=== PATIENT | female | born 1975 | race Caucasian/White ===

== ENCOUNTER 2020-10-30 19:18 | Inpatient (IN) | payer MEDICAID, OTHER, SELFPAY ==
--- OUTSIDE RECORDS SUMMARY | 2020-10-30 19:20 | XMS REPORT | Continuity of Care Document ---
:1975 Author Organization [facility] t Address [address] [place] [address] Care Team Providers Name Role Phone Singer JONES Attending Clinician Mary Gomez MD Attending Clinician Problems This patient has no known problems. Allergies, Adverse Reactions, Alerts This patient has no known allergies or adverse reactions. Medications This patient has no known medications. Procedures This patient has no known procedures. Encounters Start End Encounter Admission Attending Care Care Encounter Source Date/Time Date/Time Type Type Clinicians Facility Department ID 2020-10-25 2020-10-26 Emergency [place], [place] [facility] [id number] 17:55:00 01:08:00 Karon Gomez [id number] [place] [id number] [place] [id number] Results This patient has no known results.
[2020-10-31 00:11] LABS: Absolute Lymphocytes (CBC) 4.6 K/uL (0.7-4.9); Basophils % 0.7 % (0-1.3); Hematocrit 31.5 % (36.0-45.0); Lymphocytes % 36.4 % (15.3-44.8); MPV 8.7 fL (7.6-11.3); RBC Red Blood Cell Count 3.79 M/uL (3.86-4.86)
[2020-10-31] MEDS ORDERED: MORPHINE 4 MG/ML SYR ONE (00:14)
[2020-10-31] MEDS ORDERED: ONDANSETRON 4 MG/2 ML VIAL ONE (00:14)
[2020-10-31] MEDS ORDERED: NA CHLORIDE 0.9% 1,000 ML ONE (00:14)
[2020-10-31 00:15] LABS: Protime INR 1.08
[2020-10-31] MEDS ORDERED: CLINDAMYCIN 900MG/D5W 900 MG/50 ML IVPB IV ONE (00:15)
[2020-10-31 01:20] LABS: ALT/SGPT 10 U/L (12-78); AST/SGOT 8 U/L (15-37); Albumin 2.5 g/dL (3.4-5.0); Alkaline Phosphatase ND U/L (45-117); BUN Blood Urea Nitrogen 7 mg/dL (7-18); Bicarbonate 27 mmol/L (21-32); Bilirubin Direct < 0.1 mg/dL (0-0.2); Bilirubin Total 0.2 mg/dL (0.2-1.0); Glucose Level 100 mg/dL (74-106); Lipase 155 U/L (73-393); Magnesium 2.2 mg/dL (1.8-2.4); NT PRO-BNP 165 pg/mL (<125); Protein, Total 7.8 g/dL (6.4-8.2); Sodium Level 141 mmol/L (136-145); Troponin (Emerg Dept Use Only) < 0.02 ng/mL (0.0-0.045)
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
[2020-10-31] MEDS ORDERED: NA CHLORIDE 0.9% 250 ML ONE (02:43)
[2020-10-31] MEDS ORDERED: NS KCL 20MEQ 1,000 ML IV ONE (02:43)
[2020-10-31] MEDS ORDERED: VANCOMYCIN 1 GM/VIAL ONE (02:43)
[2020-10-31] MEDS ORDERED: POTASSIUM 25 MEQ EFFERV TAB ONE (02:43)
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
[2020-10-31] MEDS ORDERED: MORPHINE 2 MG/ML SYR ONE ×2 (03:31→05:51)
[2020-10-31] MEDS ORDERED: ONDANSETRON 4 MG/2 ML VIAL IV PRN (03:54)
[2020-10-31 03:58] VITALS: BMI 23.8
[2020-10-31] MEDS: D5.45NS W/KCL 20MEQ 1,000 ML IV SCH ×2 (05:02→14:00)
[2020-10-31] MEDS ORDERED: D5.45NS W/KCL 20MEQ 1,000 ML IV ONE (05:18)
[2020-10-31] MEDS: MORPHINE 2 MG/ML SYR IV PRN ×2 (05:39→16:52)
[2020-10-31] MEDS ORDERED: NA CHLORIDE 0.9% 100 ML ONE (08:22)
[2020-10-31] MEDS ORDERED: HYDROMORPHONE HCL 1 MG/ML INJ ONE (08:22)
[2020-10-31] MEDS ORDERED: HYDROMORPHONE HCL 1 MG/ML INJ IV ONE (08:29)
--- NOTE | 2020-10-31 08:48 | RAD REPORT ---
EXAM DESCRIPTION: RAD - Chest Single View - 10/30/2020 11:58 pm CLINICAL HISTORY: ABDOMINAL DISTENTION Chest pain. COMPARISON: No comparisons FINDINGS: Portable technique limits examination quality. The lungs are grossly clear. The heart is normal in size. No displaced fractures. IMPRESSION: No acute intrathoracic process suspected.
[2020-10-31] MEDS ORDERED: INFLUENZA VACCINE (for 3y+) 0.5 ML DOSE IMVAC ONE (09:00)
[2020-10-31] MEDS: CLINDAMYCIN INJ 600 MG in NA CHLORIDE 0.9% 50 ML IV SCH ×2 (09:00→17:00)
[2020-10-31] MEDS ORDERED: VANCOMYCIN/NS 1 gm 1 GM/250 ML BAG IVPB SCH (09:00)
[2020-10-31] MEDS ORDERED: CLINDAMYCIN 600MG/D5W 600 MG/50 ML BAG IV ONE (09:24)
--- NOTE | 2020-10-31 10:01 | RAD REPORT ---
EXAM DESCRIPTION: CT ABDOMEN AND PELVIS WITH CONTRAST CLINICAL HISTORY: ABD PAIN COMPARISON: None Available. TECHNIQUE: CT of the abdomen and pelvis performed following IV administration of . This exam was per formed according to our departmental dose-optimization program, which includes automated exposure con trol, adjustment of the mA and/or kV according to patient size and/or use of iterative reconstruction technique. FINDINGS: Lung Bases: The visualized lung bases are clear. Bones: No destructive bone lesions identified. Abdomen: Liver: The liver has normal size and density. No intrahepatic biliary dilatation. Gallbladder: No calcified gallstones. Spleen, Pancreas, and Adrenal Glands: The spleen, pancreas, and adrenal glands are unremarkable. Kidneys: No hydronephrosis or obstructing calculus. Vasculature: The aorta and IVC have normal caliber and position. The portal vein is patent. The pro ximal visceral and renal arteries are patent. Stomach: Gastrostomy tube in place. Other: No free intraperitoneal air. Large partially peripherally enhancing fluid collection in th e left lower abdominal wall subcutaneous soft tissues measuring 15.0 x 5.1 x 11.2 cm . Tiny fat-conta ining umbilical hernia. Pelvis: Bladder: Urinary bladder is unremarkable. Bowel: No dilated loops of large or small bowel. Appendix: Normal appendix. Pelvis: Prior hysterectomy. IMPRESSION: 1. There is a large partially peripherally enhancing fluid collection in the left lower abdominal wall subcutaneous soft tissues measuring at least 15.0 cm in greatest dimension. This is co ncerning for abscess formation. Electronically signed by: Jeremy Doty 10/31/2020 2:03 AM CDT Due to temporary technical issues with the PACS/Fluency reporting system, reports are being signed by the in house radiologist without review as a courtesy to ensure prompt reporting. The interpreting r adiologist is fully responsible for the content of the report.
[2020-10-31] MEDS ORDERED: Ringers Lactate 1,000 ML IV ONE (10:02)
[2020-10-31 10:32] LABS: Urine Blood TRACE (NEG); Urine Glucose NEGATIVE (NEG); Urine Protein NEGATIVE (NEG)
[2020-10-31] MEDS ORDERED: dexAMETHasone 10 MG/ML VIAL ONE (10:53)
[2020-10-31] MEDS ORDERED: MIDAZOLAM HCL 2 MG/2 ML INJ ONE (10:53)
[2020-10-31] MEDS ORDERED: LIDOCAINE 2% MPF 5 ML VIAL ONE (10:53)
[2020-10-31] MEDS ORDERED: FENTANYL CITR 100 MCG/2 ML ONE (10:53)
[2020-10-31] MEDS ORDERED: propofoL 200 MG/20 ML VIAL IV ONE (10:53)
[2020-10-31] MEDS ORDERED: KETOROLAC 30 MG/ML INJ ONE (10:53)
[2020-10-31] MEDS ORDERED: BUPIVACAINE 0.5% PF 10 ML VIAL ONE (10:56)
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
--- NOTE | 2020-10-31 11:37 | P.OP ---
Electrical Tester Battery: NONE,NONE Preoperative diagnosis: Abscess and Cellulitis Left abdominal wall and S/P PEG Postoperative diagnosis: same Primary procedure: I and D and Debridement Left Abdominal Wall Abscess with Pulse Irrigation Secondary procedure: Removal PEG Anesthesia: General Estimated blood loss: min Specimen: pus and PEG tube Findings: as above Complications: None Transferred to: Recovery Room Condition: Good
--- NOTE | 2020-10-31 12:00 | OP ---
Date of Procedure: 10/31/2020 Surgeon: Albert Herrera MD Sole Layer Hand: None. Preoperative Diagnosis: Abdominal wall abscess left abdomen and status post PEG tube placement. Postoperative Diagnosis: Abdominal wall abscess left abdomen and status post PEG tube placement. Procedure: Incision, drainage and debridement of left abdominal wall abscess with pulse irrigation a nd removal of PEG tube. Estimated Blood Loss: Minimal. Specimen: Pus and PEG tube for identification. Finding: As above. Anesthesia: General. Complications: None. Disposition: The patient tolerated the procedure in stable condition and taken to Recovery in good g eneral condition. Procedure In Detail: The patient was brought to the OR and placed in supine position. General anest hesia begun. The patient was prepped and draped in usual sterile fashion. Marcaine 0.5% was infiltr ated locally. Then, 15 blade was used to make approximately a 4 cm incision over the most fluctuant part of the abscess in the left lower abdomen. The 2 areas of fluctuance were connected on the CAT s can and this was evident. Pus under pressure was evacuated and the fluctuance disappeared in the low er groin area. All the pus was evacuated. Cultures were done. Loculation was broken. Wound was ir rigated. The necrotic tissue was debrided. Pulse irrigation was done. Effluent was clear and a wet -to-dry normal saline dressing change was applied and then the gentle traction was placed on the PEG tube and it was removed easily, and 2-0 nylon was used to close the open wound. Sterile dressing was applied. The patient was awakened and taken to Recovery in good general condition. /MODL Voice ID: [id number] Report ID: [id number]
[2020-10-31] MEDS: VANCOMYCIN/NS 1 gm 1 GM/250 ML BAG IVPB SCH (15:00)
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
[2020-10-31] MEDS: HYDROCODONE/APAP 7.5/325 MG TAB PO PRN (19:59)
[2020-11-01] MEDS: CLINDAMYCIN INJ 600 MG in NA CHLORIDE 0.9% 50 ML IV SCH ×3 (00:12→17:00)
[2020-11-01] MEDS: D5.45NS W/KCL 20MEQ 1,000 ML IV SCH ×2 (00:46→10:00)
[2020-11-01] MEDS: VANCOMYCIN/NS 1 gm 1 GM/250 ML BAG IVPB SCH ×2 (02:07→17:54)
[2020-11-01 05:56] LABS: Absolute Lymphocytes (CBC) 3.7 K/uL (0.7-4.9); Basophils % 1.1 % (0-1.3); Hematocrit 25.1 % (36.0-45.0); MPV 8.9 fL (7.6-11.3); RBC Red Blood Cell Count 3.02 M/uL (3.86-4.86)
[2020-11-01 06:31] LABS: ALT/SGPT 9 U/L (12-78); AST/SGOT 8 U/L (15-37); BUN Blood Urea Nitrogen 6 mg/dL (7-18); Bicarbonate 26 mmol/L (21-32); Bilirubin Total 0.3 mg/dL (0.2-1.0); Glucose Level 100 mg/dL (74-106); Potassium 3.8 mmol/L (3.5-5.1); Protein, Total 5.9 g/dL (6.4-8.2); Sodium Level 143 mmol/L (136-145); Thyroid Stimulating Hormone 0.294 uIU/mL (0.360-3.740)
[2020-11-01 06:35] LABS: Alkaline Phosphatase ND U/L (45-117)
[2020-11-01] MEDS: HYDROCODONE/APAP 7.5/325 MG TAB PO PRN ×2 (07:58→21:43)
[2020-11-01] MEDS ORDERED: POTASSIUM CL SA 10 MEQ TAB PO ONE (09:00)
[2020-11-01] MEDS: MORPHINE 2 MG/ML SYR IV PRN (13:52)
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
[2020-11-01] MEDS ORDERED: TRAMADOL HCL 50 MG TAB PO PRN (14:12)
[2020-11-01 16:26] LABS: Hematocrit 29.4 % (36.0-45.0)
--- NOTE | 2020-11-01 16:49 | PN ---
Date of Progress Note: 11/01/2020 Subjective: The patient is awake, alert. No complaint. Vitals stable, afebrile. Laboratory data s hows slight decrease in the white count. Cultures are pending. Gram stain shows probable staph orga nism. Dressing is clean, dry and intact on physical exam. Assessment: Status post I and D, abdominal wall abscess. Recommendations: Continue IV antibiotics. Check cultures. Adjust oral antibiotics based on the cul tures. Wound care as ordered, teach family. Probable discharge in 24 to 48 hours. Discharge zeinab HAYS/MODL Voice ID: [id number] Report ID: [id number]
[2020-11-01] MEDS ORDERED: NA CHLORIDE 0.9% 250 ML ONE (18:18)
[2020-11-02] MEDS: CLINDAMYCIN INJ 600 MG in NA CHLORIDE 0.9% 50 ML IV SCH ×2 (00:14→09:15)
[2020-11-02] MEDS: VANCOMYCIN/NS 1 gm 1 GM/250 ML BAG IVPB SCH (02:07)
[2020-11-02 06:59] LABS: Hematocrit 26.6 % (36.0-45.0); Lymphocytes % 46.6 % (15.3-44.8); MPV 8.9 fL (7.6-11.3); RBC Red Blood Cell Count 3.21 M/uL (3.86-4.86)
[2020-11-02 07:09] LABS: ALT/SGPT 10 U/L (12-78); AST/SGOT 7 U/L (15-37); Albumin 2.1 g/dL (3.4-5.0); Alkaline Phosphatase 90 U/L (45-117); BUN Blood Urea Nitrogen 7 mg/dL (7-18); Bicarbonate 27 mmol/L (21-32); Bilirubin Total 0.2 mg/dL (0.2-1.0); Glucose Level 83 mg/dL (74-106); Potassium 3.9 mmol/L (3.5-5.1); Sodium Level 145 mmol/L (136-145)
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
[2020-11-02 09:06] VITALS: BP 113/79; TEMP 97.7
[2020-11-02 09:29] VITALS: O2SAT 99
--- NOTE | 2020-11-02 10:12 | PN ---
Date of Progress Note: 11/02/2020 Subjective: The patient is awake and alert. No complaint. Physical Examination: Vital Signs: Stable. Afebrile. Abdomen: Benign. Dressing clean, dry, and intact. Laboratory Data: Cultures reviewed, Staph aureus sensitive to Bactrim, doxycycline, Cipro. White co unt is normal. Assessment: Status post incision and drainage and debridement of abdominal wall abscess. Recommendations: Clear for discharge from surgical standpoint on Bactrim and doxycycline. Follow up in the wound healing center in a week. Wound care as ordered. Plan of care discussed with Dr. Smallwood as. /MODL Voice ID: [id number] Report ID: [id number]
== END 2020-11-02 10:27 | disposition home or self-care (01) | DRG 572 ==
LOC: ER 19:18 → ERHOLD 10-31 03:30 → 2ND 10-31 12:49
PROVIDERS: ADMIT Family Medicine; ATTEND Family Medicine
PROC: 0DP60UZ Removal of Feeding Device from Stomach, Open Approach (ICD-10-PCS; 2020-10-31)
PROC: 0JB80ZZ Excision of Abdomen Subcutaneous Tissue and Fascia, Open Approach (ICD-10-PCS; principal; 2020-10-31 10:15)
DX: L02.211 Cutaneous abscess of abdominal wall (principal); L03.311 Cellulitis of abdominal wall; F17.210 Nicotine dependence, cigarettes, uncomplicated; D50.9 Iron deficiency anemia, unspecified; F41.9 Anxiety disorder, unspecified; B95.61 Methicillin susceptible Staphylococcus aureus infection as the cause of diseases classified elsewhere; Z93.1 Gastrostomy status; Z79.899 Other long term (current) drug therapy; Z93.0 Tracheostomy status; Z20.822 Contact with and (suspected) exposure to COVID-19
CPT/HCPCS: 36415; 71045; 74177; 80048; 80053; 80076; 80202; 81003; 81025; 83690; 83735; 83880; 84439; 84443; 84484; 85014; 85018; 85025; 85610; 87070; 87075; 87077; 87186; 87205; 88300; 96365; 96366; 96367; 96375; 99285; J1100; J1170; J2250; J2270; J2405; J2704; J3010; J3370; J3480; J7050; J7120; Q9967; U0003

== ENCOUNTER 2021-12-07 14:41 | Emergency (ER) | payer OTHER ==
--- OUTSIDE RECORDS SUMMARY | 2021-12-07 14:45 | XMS REPORT | Continuity of Care Document ---
:1975 Author Organization [facility] t Address [address] [place] [address] Care Team Providers Name Role Phone PELON WING Primary Care Physician Unavailable CA Attending Clinician Unavailable ROSALIE Attending Clinician Unavailable Ca LE Attending Clinician Doctor Unassigned, Name Attending Clinician Unavailable Pelon Wing MD Attending Clinician Carlos CHEN S Attending Clinician Raciel Levi Attending Clinician Unavailable Singer JONES Attending Clinician Patricia LE S Attending Clinician SHERRI Attending Clinician Unavailable MARTHA Attending Clinician Unavailable LUL Attending Clinician Unavailable CA Admitting Clinician Unavailable Rey Hernandez Admitting Clinician Unavailable Payers Payer Name Policy Type Policy Number Effective Date Expiration Date S [facility] [id number] 2021 00:00:00 [place] [id number] 2021 00:00:00 Problems Condition Condition Condition Status Onset Resolution Last Treating Co mments Source Name Details Category Date Date Treatment Clinician Date Displaced Displaced Disease Active Overview: Univers fracture fracture 4-11 Formattin ity of of neck of of neck of 00:00: g of this [place] right right 00 note Medical talus, talus, might be Branch initial initial different encounter encounter from the for closed for closed original. fracture fracture Added automatic ally from request for surgery [id number] Osteonecro Osteonecro Disease Active Overview : Univers sis due to sis due to 4- Formattin ity of previous previous 00:00: g of this [place] as trauma, trauma, 00 note Medical right right might be Branch ankle ankle different from the original. Added automatic ally from request for surgery [id number] Fracture, Fracture, Disease Active Uni vers fibula, fibula, 4-04 ity of with with 00:00: [place] tibia, tibia, 00 Medical left, left, Branch closed, closed, with with nonunion, nonunion, subsequent subsequent encounter encounter Traumatic Traumatic Disease Active Uni vers arthritis arthritis 04 ity of of ankle, [place], [place] Smoker Smoker Disease Active Univers 4-04 ity of 00:00: [place] 00 Medical Branch Pseudoseiz Pseudoseiz Disease Active U nivers ure ure 1-12 ity of 00:00: [place] 00 Medical Branch Epilepsy Epilepsy Problem Active Unive rs ity of [place] Physici ans Allergies, Adverse Reactions, Alerts Allergy Allergy Status Severity Reaction(s) Onset Inactive Treating Comm ents Source Name Type Date Date Clinician codeine DA Active U UNKNOWN [facility] 7-16 [place] 00:00: Health [address] aspirin DA Active U UNKNOWN [facility] 7-16 [place] 00:00: Health [address] ibuprofe DA Active U UNKNOWN [facility] n 7-16 [place] 00:00: Health [address] codeine DA Active U [facility] 7-16 [place] 00:00: Health [address] aspirin DA Active U [facility] 7-16 [place] 00:00: Health [address]uprofe DA Active U [facility] n 7-16 [place] 00:00: Health [address] NO KNOWN Drug Active Univers ALLERGIE Class ity of S [facility] Social History Social Habit Start Date Stop Date Quantity Comments Source History of tobacco Cigarette Smoker University of use [place] [facility] History SDOH University o f Alcohol Std Drinks [place] [facility] History SDOH University o f Alcohol Binge [place] [facility] al Branch History SDOH University o f Alcohol Comment [place] Med ical Branch Exposure to 2021-11-27 2021-12-07 Unable to assess Univers ity of SARS-CoV-2 (event) 00:00:00 12:14:00 [facility] Alcohol intake 2021-11-17 2021-11-17 Lifetime University of 00:00:00 00:00:00 non-drinker [facility] (finding) Branch Cigarettes smoked 2021-04-09 2021-04-09 Univers ity of current (pack per 00:00:00 00:00:00 [facility] ) - Reported Branch Tobacco use and 2021-04-09 2021-04-09 Never used Universit y of exposure 00:00:00 00:00:00 [facility] History SDOH 2021-04-09 2021-04-09 1 University o f Alcohol Frequency 00:00:00 00:00:00 [facility] Sex Assigned At [birth year] Universit y of 00:00:00 00:00:00 [facility] Smoking Status Start Date Stop Date Source Current every day smoker 2021-04-09 00:00:00 Uni versity of [facility] Medications Ordered Filled Start Stop Current Ordering Indication Dosage Frequency Signature Comments Components Source Medication Medication Date Date Medication? Clinician (SIG) Name Name naproxen Yes 220mg Take 220 Univ ers sodium 3-29 mg by ity of (ALEVE) 220 12:30: mouth 2 [place] mg tablet 01 (two) Medical times Branch daily with meals. naproxen Yes 220mg Take 220 Univ ers sodium 3-29 mg by ity of (ALEVE) 220 12:30: mouth 2 [place] mg tablet 01 (two) Medical times Branch daily with meals. naproxen 0 Yes 220mg Take 220 Univ ers sodium 3-29 mg by ity of (ALEVE) 220 12:30: mouth 2 [place] mg tablet 01 (two) Medical times Branch daily with meals. naproxen 0 Yes 220mg Take 220 Univ ers sodium 3-29 mg by ity of (ALEVE) 220 12:30: mouth 2 [place] as mg tablet 01 (two) Medical times Branch daily with meals. naproxen 0 Yes 220mg Take 220 Univ ers sodium 3-29 mg by ity of (ALEVE) 220 12:30: mouth 2 [place] mg tablet 01 (two) Medical times Branch daily with meals. naproxen 2021-0 Yes 220mg Take 220 Univ ers sodium 3-29 mg by ity of (ALEVE) 220 12:30: mouth 2 [place] mg tablet 01 (two) Medical times Branch daily with meals. naproxen 2021-0 Yes 220mg Take 220 Univ ers sodium 3-29 mg by ity of (ALEVE) 220 12:30: mouth 2 [place] mg tablet 01 (two) Medical times Branch daily with meals. naproxen 2021-0 Yes 220mg Take 220 Univ ers sodium 3-29 mg by ity of (ALEVE) 220 12:30: mouth 2 [place] mg tablet 01 (two) Medical times Branch daily with meals. naproxen 2021-0 Yes 220mg Take 220 Univ ers sodium 3-29 mg by ity of (ALEVE) 220 12:30: mouth 2 [place] mg tablet 01 (two) Medical times Branch daily with meals. escitalopra Yes [id number] 20mg Take 1 Univers m oxalate 3-25 tablet by ity o f 20 mg 00:00: mouth [place] tablet 00 daily. Medical Branch escitalopra Yes [id number] 20mg Take 1 Univers m oxalate 3-25 tablet by ity o f 20 mg 00:00: mouth [place] tablet 00 daily. Medical Branch escitalopra Yes [id number] 20mg Take 1 Univers m oxalate 3-25 tablet by ity o f 20 mg 00:00: mouth [place] tablet 00 daily. Medical Branch escitalopra Yes [id number] 20mg Take 1 Univers m oxalate 3-25 tablet by ity o f 20 mg 00:00: mouth [place] tablet 00 daily. Medical Branch escitalopra Yes [id number] 20mg Take 1 Univers m oxalate 3-25 tablet by ity o f 20 mg 00:00: mouth [place] tablet 00 daily. Medical Branch escitalopra Yes [id number] 20mg Take 1 Univers m oxalate 3-25 tablet by ity o f 20 mg 00:00: mouth [place] tablet 00 daily. [facility] Branch escitalopra Yes [id number] 20mg Take 1 Univers m oxalate 3-25 tablet by ity o f 20 mg 00:00: mouth [place] tablet 00 daily. Medical Branch escitalopra 2021-0 Yes [id number] 20mg Take 1 Univers m oxalate 3-25 tablet by ity o f 20 mg 00:00: mouth [place] tablet 00 daily. Medical Branch escitalopra 2021-0 Yes [id number] 20mg Take 1 Univers m oxalate 3-25 tablet by ity o f 20 mg 00:00: mouth [place] tablet 00 daily. Medical Branch GABAPENTIN 2021-0 Yes [id number] TAKE 1 Univers 300 mg 2-14 CAPSULE BY ity of capsule 00:00: MOUTH [place] 00 THREE Medical TIMES A Branch DAY GABAPENTIN 2-0 Yes [id number] TAKE 1 Univers 300 mg 2-14 CAPSULE BY ity of capsule 00:00: MOUTH [place] 00 THREE Medical TIMES A Branch DAY GABAPENTIN 2022-0 Yes [id number] TAKE 1 Univers 300 mg 2-14 CAPSULE BY ity of capsule 00:00: MOUTH [place] 00 THREE Medical TIMES A Branch DAY GABAPENTIN 2-0 Yes [id number] TAKE 1 Univers 300 mg 2-14 CAPSULE BY ity of capsule 00:00: MOUTH [place] 00 THREE Medical TIMES A Branch DAY GABAPENTIN 2-0 Yes [id number] TAKE 1 Univers 300 mg 2-14 CAPSULE BY ity of capsule 00:00: MOUTH [place] 00 THREE Medical TIMES A Branch DAY GABAPENTIN 2022-0 Yes [id number] TAKE 1 Univers 300 mg 2-14 CAPSULE BY ity of capsule 00:00: MOUTH [place] 00 THREE Medical TIMES A Branch DAY GABAPENTIN 2022-0 Yes [id number] TAKE 1 Univers 300 mg 2-14 CAPSULE BY ity of capsule 00:00: MOUTH [place] 00 THREE Medical TIMES A Branch DAY GABAPENTIN 2022-0 Yes [id number] TAKE 1 Univers 300 mg 2-14 CAPSULE BY ity of capsule 00:00: MOUTH [place] 00 THREE Medical TIMES A Branch DAY GABAPENTIN 2-0 Yes [id number] TAKE 1 Univers 300 mg 2-14 CAPSULE BY ity of capsule 00:00: MOUTH [place] 00 THREE Medical TIMES A Branch DAY neomycin-po 2021-0 Yes PUT1 DROP U nivers lymyxin-dex 2-07 IN EACH ity o f amethasone 00:00: EYE 4 [place] 3.5mg/mL-10 00 TIMES A Medic al ,000 DAY FOR 7 Branch unit/mL-0.1 DAYS % (START ophthalmic AFTER suspension SURGERY) drops neomycin-po 2022-0 Yes PUT1 DROP U nivers lymyxin-dex 2-07 IN EACH ity o f amethasone 00:00: EYE 4 [place] 3.5mg/mL-10 00 TIMES A Medic al ,000 DAY FOR 7 Branch unit/mL-0.1 DAYS % (START ophthalmic AFTER suspension SURGERY) drops neomycin-po 2022-0 Yes PUT1 DROP U nivers lymyxin-dex 2-07 IN EACH ity o f amethasone 00:00: EYE 4 [place] 3.5mg/mL-10 00 TIMES A Medic al ,000 DAY FOR 7 Branch unit/mL-0.1 DAYS % (START ophthalmic AFTER suspension SURGERY) drops neomycin-po 2022-0 Yes PUT1 DROP U nivers lymyxin-dex 2-07 IN EACH ity o f amethasone 00:00: EYE 4 [place] 3.5mg/mL-10 00 TIMES A Medic al ,000 DAY FOR 7 Branch unit/mL-0.1 DAYS % (START ophthalmic AFTER suspension SURGERY) drops neomycin-po 2022-0 Yes PUT1 DROP U nivers lymyxin-dex 2-07 IN EACH ity o f amethasone 00:00: EYE 4 [place] 3.5mg/mL-10 00 TIMES A Medic al ,000 DAY FOR 7 Branch unit/mL-0.1 DAYS % (START ophthalmic AFTER suspension SURGERY) drops neomycin-po 2022-0 Yes PUT1 DROP U nivers lymyxin-dex 2-07 IN EACH ity o f amethasone 00:00: EYE 4 [place] 3.5mg/mL-10 00 TIMES A Medic al ,000 DAY FOR 7 Branch unit/mL-0.1 DAYS % (START ophthalmic AFTER suspension SURGERY) drops neomycin-po 2022-0 Yes PUT1 DROP U nivers lymyxin-dex 2-07 IN EACH ity o f amethasone 00:00: EYE 4 [place] 3.5mg/mL-10 00 TIMES A Medic al ,000 DAY FOR 7 Branch unit/mL-0.1 DAYS % (START ophthalmic AFTER suspension SURGERY) drops neomycin-po 2022-0 Yes PUT1 DROP U nivers lymyxin-dex 2-07 IN EACH ity o f amethasone 00:00: EYE 4 [place] 3.5mg/mL-10 00 TIMES A Medic al ,000 DAY FOR 7 Branch unit/mL-0.1 DAYS % (START ophthalmic AFTER suspension SURGERY) drops neomycin-po Yes PUT1 DROP U elfegokomal lymyxin-dex 2-07 IN EACH ity o f amethasone 00:00: EYE 4 [place] 3.5mg/mL-10 00 TIMES A Medic al ,000 DAY FOR 7 Branch unit/mL-0.1 DAYS % (START ophthalmic AFTER suspension SURGERY) drops levETIRAcet levETIRAcet Yes TAKE 1 Univers am 1000 MG am 1000 MG TABLET BY ity of Oral Tablet Oral Tablet MOUTH [place] TWICE Physici DAILY ans Wellbutrin Wellbutrin Yes Q12H TAKE 1 U nivers SR 150 MG SR 150 MG TABLET ity of Oral Tablet Oral Tablet EVERY 12 [place] Extended Extended HOURS Physic i Release 12 Release 12 DAILY. a ns Hour Hour Vital Signs Vital Name Observation Time Observation Value Comments Source Body temperature 2021-11-17 14:59:00 36.06 Sarah [facility] height 2021-11-17 14:59:[address] [facility] Body weight 2021-11-17 14:59:[address] [facility] BMI 2021-11-17 14:59:00 37.22 kg/m2 [facility] Procedures Procedure Date / Time Performed Performing Clinician [facility] e NOTICE OF PRIVACY 2021-12-07 17:18:05 [facility]igned, [facility] Name Medical Branch CONSENT/REFUSAL FOR 2021-12-07 17:17:14 Doctor Unassigned, No [facility] DIAGNOSIS AND Name Medical Branch TREATMENT MEDICAL 2021-12-04 05:01:00 Doctor Unassigned, No Univer sity [facility] [place] [facility] RELEASE/CLEARANCE Name Medical Branch FORMS PHYSICIAN ORDERS 2021-11-19 05:01:00 Doctor [facility]assigned, [facility] Name Medical Branch XR ANKLE 3+ VW 2021-11-17 15:35:55 Flakita [facility] BILATERAL Medical Branch XR FOOT 3+ VW 2021-11-17 15:35:12 Flakita [facility] BILATERAL Medical Branch Encounters Start End Encounter Admission Attending Care Care Encounter Source Date/Time Date/Time Type Type Clinicians Facility Department ID 2021-12-05 Outpatient PANCHBHAVI, [facility] SOR [id number] Univers 08:18:10 [place] ity [facility] 2021-01-22 Outpatient ROSALIE [facility] [id number] [place] 16:38:07 TOR [facility] 2021-12-29 2021-12-29 [facility] [id number] Univers 13:30:00 13:30:00 [place] [id number] ity of [facility] 2021-12-29 2021-12-29 Outpatient [facility] [id number] Univers 13:30:00 13:30:00 [place] ity [facility] 2021-12-13 2021-12-13 Outpatient R [facility] [id number] Univers 10:00:00 10:00:00 [id number] ity of [facility] 2021-12-13 2021-12-13 Outpatient R [facility] [id number] Univers 10:00:00 10:00:00 ity of [facility] 2021-12-07 2021-12-07 Emergency X [facility] ERT [id number] Univers 13:19:00 13:20:00 ity of [facility] 2021-12-07 2021-12-07 Emergency [facility] [id number] Univers 13:19:00 13:20:00 [place] [id number] i ty of HOWE 4.2.7.2.686 [facility] [phone] [facility] [address] [place] 2021-12-04 2021-12-[address] [facility] [id number] Univers 00:00:00 00:00:00 Management [place] [facility] [id number] ity of CARE [id number] [facility] [place] [facility] AT [phone] Sd rebeccaal RICKY 198 [facility] 2021-12-04 2021-12-04 Orders Doctor TAYLOR [id number] Univers 00:00:00 00:00:00 Only Unassigned, TEVIN [id number] ity of [place] [facility] 4.2.7.2.686 [place] [phone] [address] 2021-11-19 2021-11-19 Orders Doctor TAYLOR [id number] Univers 00:00:00 00:00:00 Only Unassigned, TEVIN [id number] ity of [place] [facility] 4.2.7.2.686 [place] as [phone] [address] 2021-11-18 2021-11-18 [facility] [id number] Univers 00:00:00 00:00:00 [facility] [id number] it y of [place] 4.2.7.2.686 [place]ie as SAUL?BLEA [phone] Sd rick MICHELLE 044 [facility] OFFICE [facility] 2021-11-18 2021-11-18 Telephone [facility] [id number] Univers 00:00:00 00:00:00 [facility] [id number] it y of [place] 4.2.7.2.686 [place] as SAUL?BLEA [phone] Sd rick MICHELLE 198 [facility] OFFICE [facility] 2021-11-17 2021-11-17 [facility] [id number] Univers 10:12:19 23:59:00 Encounter [place] SPECIALTY [id number] ity of C[place] [id number] [place] [phone] Sd rick GARCÍA 809 [facility] 2021-11-17 2021-11-17 Office [facility] [id number] Univers 10:50:00 10:50:00 Visit [place] SPECIALTY [id number] ity of C[place] [id number] [place] [phone] Sd rick GARCÍA 198 [facility] 2021-11-17 2021-11-17 Outpatient R [facility] [id number] Univers 10:11:59 10:11:59 [place] ity of [facility] 2021-11-17 2021-11-17 [facility] [id number] Univers 10:11:59 10:11:59 Encounter [place] SPECIALTY [id number] [facility] 4.2.7.2.686 Willie mccloud MARINA DEL REY AT [phone] Sd rick GARCÍA 9 [facility] 2021-02-28 2021-02-28 Emergency EM MARC LeviNW NATALI [id number]- [facility] 13:48:00 21:10:00 [place] [id number] [place] [facility] are [facility] 2020-10-25 2020-10-26 Emergency [place] [facility] 1.2.840. [id number] 17:55:00 01:08:00 Karon Gomez [place] [id number] [place] [id number] [place] [phone] [id number] 2020-10-08 2020-10-08 Appointmen LEANNE POLANCO UTP [id number] Univers 08:15:00 08:15:00 t; IKE POLANCO P.A. ity of [place], [place] P.A. Physici ans 2020-09-06 2020-09-06 Appointmen TAYLOR THOMAS UTP UTP [id number] [facility] 10:30:00 10:30:00 t; Karma THOMAS M.D. [place] Physici ans 2020-09-02 2020-09-02 Appointmen LEANNE MCCARTY UTP [id number] Univers 10:00:00 10:00:00 t; MAVERICK MCCARTY ity of [place], M.D. [place] M.D. Physici ans Results Test Description Test Time Test Comments Results Result Comments Source BASIC METABOLIC PANEL 2021-02-28 19:06:00 Test Item Value Reference Range Interpretation Comme nts SODIUM (test code = NA) 137 mmol/L 135-145 N POTASSIUM (test code = K) 3.9 mmol/L 3.6-5.0 N CHLORIDE (test code = CL) 102 mmol/L 101-111 N CARBON DIOXIDE (test code = 20 mmol/L 21-31 L CO2) GLUCOSE (test code = GLU) 101 mg/dl 70-100 H BLOOD UREA NITROGEN (test 7 mg/dl 6-20 N code = BUN) GLOMERULAR FILTRATION RATE >=60 max estimate >60 The estimated glomerular (test code = GFR) filtration rate is computed usingpatient ra ce, age (>18), sex, and serum creatinine. If anyof the needed data shasha ments are missing the Lab oratory cannot compute an estimation of the glomerul ar filtration rate. CREATININE (test code = 0.74 mg/dL 0.44-1.03 N CREAT) CALCIUM (test code = CA) 9.5 mg/dL 8.5-10.5 N CBC W/AUTO [id number] 19:05:00 Test Item Value Reference Range Interpretation Comments WHITE BLOOD CELL (test code = 11.2 x10 3/uL 3.2-11.5 N WBC) RED BLOOD CELL (test code = 5.63 x10(6)/m 3.70-5.10 H RBC) HEMOGLOBIN (test code = HGB) 14.3 g/dL 12.0-15.0 N HEMATOCRIT (test code = HCT) 46.0 % 35.7-44.8 H MEAN CELL VOLUME (test code = 82 fL 80-100 N MCV) MEAN CELL HGB (test code = MCH) 25.4 pg 26.2-33.8 L MEAN CELL HGB CONCENTRATION 31.1 g/dL 30.0-34.0 N (test code = MCHC) RED CELL DISTRIBUTION WIDTH 18.4 % 11.3-14.5 H (test code = RDW) PLATELET COUNT (test code = 520 x10 3/uL 130-408 H PLT) MEAN PLATELET VOLUME (test code 10.5 fL 8.6-12.6 N = MPV) NEUTROPHIL % (test code = NT%) 47.0 % 40.0-70.0 N IMMATURE GRANULOCYTE % (test 0.3 % 0.0-2.0 N code = IG%) LYMPHOCYTE % (test code = LY%) 44.9 % 20-40 H MONOCYTE % (test code = MO%) 5.8 % 1-10 N EOSINOPHIL % (test code = EO%) 1.4 % 0.0-5.0 N BASOPHIL % (test code = BA%) 0.6 % 0.0-1.0 N NUCLEATED RBC % (test code = 0.0 % 0.0-0.9 N NRBC%) NEUTROPHIL # (test code = NT#) 5.3 x10 3/uL 1.6-7.2 N LYMPHOCYTE # (test code = LY#) 5.05 x10 3/uL 1.1-2.7 H MONOCYTE # (test code = MO#) 0.7 x10 3/uL 0.3-0.8 N EOSINOPHIL # (test code = EO#) 0.2 x10 3/uL 0.0-0.5 N BASOPHIL # (test code = BA#) 0.1 x10 3/uL 0.0-0.1 N CBC W/AUTO [id number] 19:03:00 Test Item Value Reference Range Interpretation Comments WHITE BLOOD CELL (test code = 11.2 x10 3/uL 3.2-11.5 N WBC) RED BLOOD CELL (test code = 5.63 x10(6)/m 3.70-5.10 H RBC) HEMOGLOBIN (test code = HGB) 14.3 g/dL 12.0-15.0 N HEMATOCRIT (test code = HCT) 46.0 % 35.7-44.8 H MEAN CELL VOLUME (test code = 82 fL 80-100 N MCV) MEAN CELL HGB (test code = MCH) 25.4 pg 26.2-33.8 L MEAN CELL HGB CONCENTRATION 31.1 g/dL 30.0-34.0 N (test code = MCHC) RED CELL DISTRIBUTION WIDTH % 11.3-14.5 (test code = RDW) PLATELET COUNT (test code = x10 3/uL 130-408 PLT) MEAN PLATELET VOLUME (test code 10.5 fL 8.6-12.6 N = MPV) NEUTROPHIL % (test code = NT%) % 40.0-70.0 LYMPHOCYTE % (test code = LY%) % 20-40 MONOCYTE % (test code = MO%) % 1-10 EOSINOPHIL % (test code = EO%) % 0.0-5.0 BASOPHIL % (test code = BA%) % 0.0-1.0 NUCLEATED RBC % (test code = % 0.0-0.9 NRBC%) NEUTROPHIL # (test code = NT#) x10 3/uL 1.6-7.2 LYMPHOCYTE # (test code = LY#) x10 3/uL 1.1-2.7 MONOCYTE # (test code = MO#) x10 3/uL 0.3-0.8 EOSINOPHIL # (test code = EO#) x10 3/uL 0.0-0.5 HCG SERUM [id number] 19:00:00 Test Item Value Reference Range Interpretation Comments HCG SERUM QUAL NEGATIVE NEGATIVE This is a jose litative (test code = HCGQL) screenin g test.The quantitative Bh cg may be helpful.Weakly positive results should be repeated in 48 hours.
[2021-12-07] MEDS ORDERED: HYDROMORPHONE HCL 1 MG/ML INJ ONE ×2 (15:26→16:00)
[2021-12-07] MEDS ORDERED: ONDANSETRON 4 MG/2 ML VIAL ONE (15:26)
[2021-12-07 15:37] LABS: Absolute Lymphocytes (CBC) 4.1 K/uL (0.7-4.9); Hematocrit 36.7 % (36.0-45.0); Lymphocytes % 27.5 % (15.3-44.8); MPV 8.3 fL (7.6-11.3); RBC Red Blood Cell Count 4.25 M/uL (3.86-4.86)
[2021-12-07 15:51] LABS: AST/SGOT 10 U/L (15-37); Albumin 3.7 g/dL (3.4-5.0); Alkaline Phosphatase 100 U/L (45-117); BUN Blood Urea Nitrogen 15 mg/dL (7-18); Bicarbonate 19 mmol/L (21-32); Bilirubin Total 0.4 mg/dL (0.2-1.0); Glucose Level 109 mg/dL (74-106); Lipase 87 U/L (73-393); Protein, Total 7.9 g/dL (6.4-8.2); Sodium Level 139 mmol/L (136-145)
--- NOTE | 2021-12-07 15:51 | RAD REPORT ---
EXAM DESCRIPTION: RAD - Chest Single View - 12/07/2021 3:39 pm CLINICAL HISTORY: flank pain, abdominal pain COMPARISON: Portable 10/30/2020 TECHNIQUE: AP portable chest image was obtained 12/07/2021 3:39 pm . FINDINGS: Lungs are clear. Heart and vasculature are normal. No measurable pleural effusion and no p neumothorax. No acute bony abnormality seen. No acute aortic findings suspected. IMPRESSION: No acute cardiopulmonary process. No significant change from comparison study.
--- NOTE | 2021-12-07 15:55 | RAD REPORT ---
EXAM DESCRIPTION: CT - Stone Protocol - 12/07/2021 3:36 pm CLINICAL HISTORY: Flank pain, kidney stone suspected COMPARISON: Abdomen Pelvis W Contrast dated 10/31/2020 TECHNIQUE: Axial 3 mm thick images were obtained without oral or IV contrast. The [id number] span s the entirety of the system including uppermost abdomen and lung bases. All CT scans are performed using dose optimization technique as appropriate and may include automated exposure control or mA/KV adjustment according to patient size. FINDINGS: No hydronephrosis is present and no obstructing ureteral calculi. No suspicious renal mass es. Isodense masses and pyelonephritis are not excluded on a stone protocol CT scan. No significant a drenal finding. Urinary bladder is fully contracted limiting assessment. No bladder calculi seen. Kaye phuc and ovaries show no suspicious findings. Imaged portions of the liver, spleen and pancreas show no suspicious findings on non-contrast imaging . No gallbladder or biliary tree abnormality identified. No stomach or small bowel acute findings. Moderate stool volume is present filling but not dilating t he colon. No colon wall thickening or mass. Stool-filled cecum is positioned along the anterior midli ne floor the pelvis. Appendix is not clearly defined. There are no direct or indirect findings of ramo endicitis. No hernia, mass or bulky lymphadenopathy noted. No free air, free fluid or inflammatory stranding. No significant bony abnormality. IMPRESSION: Noncontrast CT abdomen and pelvis imaging shows no acute or suspicious finding. Isodense masses and pyelonephritis are not excluded on stone protocol technique.
[2021-12-07] MEDS ORDERED: NA CHLORIDE 0.9% 250 ML ONE (16:00)
[2021-12-07 16:04] LABS: ALT/SGPT < 10 U/L (12-78)
[2021-12-07 16:33] LABS: Urine Blood 1+ (Negative); Urine Glucose Negative (Negative); Urine Protein Negative (Negative); Urine Specific Gravity 1.025 (1.005-1.030)
[2021-12-07 16:54] LABS: Urine Specific Gravity/Preg 1.025 (1.005-1.030)
[2021-12-07] MEDS ORDERED: LIDOCAINE 4% PATCH ONE (17:58)
--- NOTE | 2021-12-07 18:05 | ER ---
Nurse's Notes [facility] Name: Carie Aguilar Age: 46 yrs Sex: Female : 1975 Arrival Date: 12/07/2021 Time: 14:43 Bed 17 Private MD: Diagnosis: Dorsalgia, unspecified-left flank pain Presentation: 12/07 14:52 Chief complaint: Patient states: Left sided abdominal pain with nausea that started 5 ww days ago and getting worse. Patient is diaphoretic and crying in triage. Coronavirus screen: Vaccine status: Patient reports receiving the 2nd dose of the covid vaccine. Client denies travel out of the [place] in the last 14 days. Coronavirus screen: Vaccine status: Patient reports being unvaccinated. Ebola Screen: Patient denies travel to an Ebola-affected area in the 21 days before illness onset. Initial Sepsis Screen: Does the patient meet any 2 criteria? HR > 90 bpm. Does the patient have a suspected source of infection? No. Patient's initial sepsis screen is negative. Risk Assessment: Do you want to hurt yourself or someone else? Patient reports no desire to harm self or others. Onset of symptoms is unknown. 14:52 Method Of Arrival: Ambulatory ww 14:52 Acuity: NKECHI 3 ww Triage Assessment: 14:54 General: Appears uncomfortable, Behavior is anxious, crying. Pain: Complains of pain in ww left upper quadrant and left lower quadrant. Neuro: Level of Consciousness is awake, alert, obeys commands, Oriented to person, place, time, situation, Speech is normal. Cardiovascular: Respiratory: Airway is patent Respiratory effort is even, unlabored, Respiratory pattern is regular, symmetrical. GI: Reports lower abdominal pain, upper abdominal pain, nausea. Derm: Skin is intact, Skin is clammy, diaphoretic. 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 - Social history:: Smoking status: Patient reports the use of cigarette tobacco products, smokes one pack cigarettes per day. Screenin:07 Abuse screen: Denies threats or abuse. Nutritional screening: No deficits noted. ll1 Tuberculosis screening: No symptoms or risk factors identified. 15:10 Fall Risk IV access (20 points). Ambulatory Aid- Crutches/Cane/Walker (15 pts). Gait- ll1 Weak (10 pts.). Total Almaraz Fall Scale indicates High Risk Score (45 or more points). Fall prevention measures have been instituted. Side Rails Up X 2 Placed Close to Nursing Station Frequent Obs/Assessments Occuring Family Present and informed to notify staff if the need to leave the bedside As available patient and family educated on Fall Prevention Program and Strategies. Assessment: 15:10 Reassessment: No changes from previously documented assessment. Patient and/or family ll1 updated on plan of care and expected duration. Pain level reassessed. Patient is alert, oriented x 3, equal unlabored respirations, skin warm/dry/pink. 15:50 Reassessment: No changes from previously documented assessment. Patient and/or family ll1 updated on plan of care and expected duration. Pain level reassessed. Patient is alert, oriented x 3, equal unlabored respirations, skin warm/dry/pink. Patient states symptoms have improved. 16:25 Reassessment: No changes from previously documented assessment. Patient and/or family ll1 updated on plan of care and expected duration. Pain level reassessed. Patient is alert, oriented x 3, equal unlabored respirations, skin warm/dry/pink. 17:30 Reassessment: No changes from previously documented assessment. Patient and/or family ll1 updated on plan of care and expected duration. Pain level reassessed. Patient is alert, oriented x 3, equal unlabored respirations, skin warm/dry/pink. 18:31 Reassessment: No changes from previously documented assessment. Patient and/or family ll1 updated on plan of care and expected duration. Pain level reassessed. Patient is alert, oriented x 3, equal unlabored respirations, skin warm/dry/pink. Vital Signs: 14:52 BP 161 / 119; Pulse 123; Resp 18; Temp 98.2; Pulse Ox 95% on R/A; Weight 90.72 kg; ww Height 5 ft. 2 in. (157.48 cm); Pain 10/10; 15:49 BP 125 / 82; Pulse 80; Resp 18; ll1 18:30 BP 142 / 79; Pulse 66; Resp 20; Pain 7/10; ll1 14:52 Body Mass Index 36.58 (90.72 kg, 157.48 cm) ww ED Course: 14:43 Patient arrived in ED. ds1 14:54 Triage completed. ww 14:54 Arm band placed on right wrist. ww 15:04 Patient placed in an exam room, on a stretcher. ww 15:06 Cedric Hernandez PA is PHCP. cp 15:06 Fabian Daniels MD is Attending Physician. cp 15:07 Brandon Hanna, MICHELLE is Primary Nurse. ll1 15:07 Patient has correct armband on for positive identification. Bed in low position. Call ll1 light in reach. Side rails up X 1. Pulse ox on. NIBP on. 15:28 Inserted saline lock: 22 gauge in right hand, using aseptic technique. Blood collected. jw7 15:37 CT Stone Protocol In Process Unspecified. EDMS 15:41 XRAY Chest (1 view) In Process Unspecified. EDMS 18:31 No provider procedures requiring assistance completed. IV discontinued, intact, ll1 bleeding controlled, No redness/swelling at site. Pressure dressing applied. Administered Medications: 15:27 Drug: Dilaudid (HYDROmorphone) 1 mg {Note: rass 0, pain 10/10.} Route: IVP; Site: right ll1 hand; 16:27 Follow up: Response: No adverse reaction; Pain is decreased; RASS: Alert and Calm (0) ll1 15:27 Drug: Zofran (Ondansetron) 4 mg Route: IVP; Site: right hand; ll1 16:27 Follow up: Response: No adverse reaction ll1 16:01 Drug: NS 0.9% 250 ml Route: IV; Rate: 500 ml/hr; Site: right hand; ll1 16:28 Follow up: Response: No adverse reaction; IV Status: Completed infusion; IV Intake: ll1 250ml 16:01 Drug: Dilaudid (HYDROmorphone) 1 mg {Note: rass 0, pain 9/10.} Route: IVP; Site: right ll1 hand; 16:28 Follow up: Response: No adverse reaction; Pain is decreased; RASS: Alert and Calm (0) ll1 17:10 Drug: NS 0.9% 1000 ml Route: IV; Rate: 500 ml/hr; Site: right antecubital; ll1 18:29 Follow up: Response: No adverse reaction; IV Status: Completed infusion; IV Intake: ll1 500ml 17:56 Drug: Lidoderm Patch 5 % (700 mg/patch) 1 patches Route: Topical; Site: affected area; ll1 18:28 Follow up: Response: No adverse reaction ll1 18:24 Not Given (Patient Refused): Baclofen 10 mg PO once ll1 18:24 Drug: Flexeril (cyclobenzaprine) 10 mg Route: PO; ll1 18:28 Follow up: Response: No adverse reaction ll1 Intake: 16:28 IV: 250ml; Total: 250ml. ll1 18:29 IV: 500ml; Total: 750ml. 1 Outcome: 18:04 Discharge ordered by MD. judy 18:31 Discharged to home ambulatory. ll1 18:31 Condition: stable 18:31 Discharge instructions given to patient, Instructed on discharge instructions, follow up and referral plans. medication usage, Demonstrated understanding of instructions, follow-up care, medications, Prescriptions given X 3. 18:32 Patient left the ED. 1 Signatures: Dispatcher [employer] [facility] Cotto, Yoon ds1 Cedric Hernandez PA PA cp Lewis, Lynsay, RN RN ll1 Jacqueline Casper RN RN Alma Delia Jj [id number] Corrections: (The following items were deleted from the chart) 14:55 14:54 Allergies: No Known Allergies; lisa gonzalez
--- NOTE | 2021-12-07 18:05 | EDPHYS ---
Physician Documentation [facility] Name: Carie Aguilar Age: 46 yrs Sex: Female : 1975 Arrival Date: 12/07/2021 Time: 14:43 Bed 17 Private MD: ED Physician Fabian Daniels HPI: 12/07 15:20 This 46 yrs old Female presents to ER via Ambulatory with complaints of side pain. cp 15:20 The patient complains of pain in the left flank. The pain does not radiate. Onset: The cp symptoms/episode began/occurred 1 week(s) ago. 15:20 Modifying factors: the symptoms are aggravated by movement, palpation/percussion. cp Associated signs and symptoms: Pertinent negatives: diarrhea, dysuria, fever, headache, hematuria, pain radiating to the lower extremities, vomiting. Severity of pain: in the emergency department the pain is unchanged despite home interventions. Patient denies injury to area. 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 - Social history:: Smoking status: Patient reports the use of cigarette tobacco products, smokes one pack cigarettes per day. ROS: 15:25 Back: Positive for flank pain, on the left. cp 15:25 Constitutional: Negative for body aches, chills, fever, poor PO intake. cp 15:25 Eyes: Negative for injury, pain, redness, and discharge. cp 15:25 ENT: Negative for drainage from ear(s), ear pain, sore throat, difficulty swallowing, difficulty handling secretions. 15:25 Cardiovascular: Negative for chest pain, edema, palpitations. 15:25 Respiratory: Negative for cough, shortness of breath, wheezing. 15:25 Abdomen/GI: Negative for abdominal pain, vomiting, diarrhea, constipation, anorexia. 15:25 : Negative for urinary symptoms. 15:25 Skin: Negative for cellulitis, rash. 15:25 Neuro: Negative for altered mental status, headache, weakness. 15:25 All other systems are negative. Exam: 15:30 Constitutional: The patient appears in no acute distress, alert, awake, cp non-diaphoretic, non-toxic, well developed, well nourished, in obvious pain, uncomfortable. 15:30 Head/Face: Normocephalic, atraumatic. cp 15:30 Eyes: Periorbital structures: appear normal, Conjunctiva: normal, no exudate, no cp injection, Sclera: no appreciated abnormality, Lids and lashes: appear normal, bilaterally. 15:30 ENT: External ear(s): are unremarkable, Nose: is normal, Mouth: Lips: moist, Oral mucosa: moist, Posterior pharynx: Airway: no evidence of obstruction, patent. 15:30 Neck: ROM/movement: is normal, is supple, without pain, no range of motions limitations, no nuchal rigidity. 15:30 Chest/axilla: Inspection: normal, Palpation: is normal, no crepitus, no tenderness. 15:30 Cardiovascular: Rate: tachycardic, Rhythm: regular, Edema: is not appreciated, JVD: is not appreciated. 15:30 Respiratory: the patient does not display signs of respiratory distress, Respirations: normal, no use of accessory muscles, no retractions, labored breathing, is not present, Breath sounds: are clear throughout, no decreased breath sounds, no stridor, no wheezing. 15:30 Abdomen/GI: Inspection: obese Bowel sounds: active, all quadrants, Palpation: soft, in all quadrants, severe abdominal tenderness, in the posterior aspect of left lateral abdomen and anterior aspect of left lateral abdomen, rebound tenderness, is not appreciated, voluntary guarding, is elicited in the posterior aspect of left lateral abdomen and anterior aspect of left lateral abdomen. 15:30 Back: vertebral tenderness, is not appreciated. 15:30 Skin: cellulitis, is not appreciated, no rash present. 15:30 Neuro: Orientation: to person, place \T\ time. Mentation: is normal, Motor: moves all fours, strength is normal, Sensation: no obvious gross deficits. Vital Signs: 14:52 BP 161 / 119; Pulse 123; Resp 18; Temp 98.2; Pulse Ox 95% on R/A; Weight 90.72 kg; ww Height 5 ft. 2 in. (157.48 cm); Pain 10/10; 15:49 BP 125 / 82; Pulse 80; Resp 18; ll1 18:30 BP 142 / 79; Pulse 66; Resp 20; Pain 7/10; ll1 14:52 Body Mass Index 36.58 (90.72 kg, 157.48 cm) ww MDM: 15:14 Patient medically screened. cp 16:00 Differential diagnosis: nephrolithiasis, pyelonephritis, UTI, pancreatitis. cp 18:04 Data reviewed: vital signs, nurses notes, lab test result(s), radiologic studies, CT cp scan. 18:04 Counseling: I had a detailed discussion with the patient and/or guardian regarding: the cp historical points, exam findings, and any diagnostic results supporting the discharge/admit diagnosis, lab results, radiology results, the need for outpatient follow up, a family practitioner, to return to the emergency department if symptoms worsen or persist or if there are any questions or concerns that arise at home. Response to treatment: Pain markedly improved. Will discharge to home for continued monitoring. 12/07 15:10 Order name: CBC with Diff; Complete Time: 15:53 ll1 12/07 15:53 Interpretation: Normal except: WBC 15.1; MCV 86.5; PLT 561; NEUT A 9.5. cp 12/07 15:10 Order name: CMP; Complete Time: 16:13 ll1 12/07 16:14 Interpretation: Normal except: CL 114; CO2 19; GLUC 109; GFR 78; AST 10; ALT < 10; GLOB cp 4.2; A/G 0.9. 12/07 15:10 Order name: Lipase; Complete Time: 16:13 ll1 12/07 16:33 Order name: Urine Dipstick-Ancillary; Complete Time: 16:53 EDMS 12/07 16:54 Interpretation: Normal except: UBLD 1+. cp 12/07 16:37 Order name: Urine --Ancillary (enter results); Complete Time: 16:57 eb 12/07 15:18 Order name: CT Stone Protocol; Complete Time: 15:56 cp 12/07 15:18 Order name: XRAY Chest (1 view); Complete Time: 15:53 cp 12/07 15:10 Order name: IV Saline Lock; Complete Time: 15:10 ll1 12/07 15:10 Order name: Labs collected and sent; Complete Time: 15:10 [facility] 12/07 15:12 Order name: Urine Dipstick-Ancillary (obtain specimen); Complete Time: 18:29 cp 12/07 15:18 Order name: Urine Test (obtain specimen); Complete Time: 18:29 cp Administered Medications: 15:27 Drug: Dilaudid (HYDROmorphone) 1 mg {Note: rass 0, pain 10/10.} Route: IVP; Site: right ll1 hand; 16:27 Follow up: Response: No adverse reaction; Pain is decreased; RASS: Alert and Calm (0) ll1 15:27 Drug: Zofran (Ondansetron) 4 mg Route: IVP; Site: right hand; ll1 16:27 Follow up: Response: No adverse reaction ll1 16:01 Drug: NS 0.9% 250 ml Route: IV; Rate: 500 ml/hr; Site: right hand; ll1 16:28 Follow up: Response: No adverse reaction; IV Status: Completed infusion; IV Intake: ll1 250ml 16:01 Drug: Dilaudid (HYDROmorphone) 1 mg {Note: rass 0, pain 9/10.} Route: IVP; Site: right ll1 hand; 16:28 Follow up: Response: No adverse reaction; Pain is decreased; RASS: Alert and Calm (0) ll1 17:10 Drug: NS 0.9% 1000 ml Route: IV; Rate: 500 ml/hr; Site: right antecubital; ll1 18:29 Follow up: Response: No adverse reaction; IV Status: Completed infusion; IV Intake: ll1 500ml 17:56 Drug: Lidoderm Patch 5 % (700 mg/patch) 1 patches Route: Topical; Site: affected area; ll1 18:28 Follow up: Response: No adverse reaction ll1 18:24 Not Given (Patient Refused): Baclofen 10 mg PO once ll1 18:24 Drug: Flexeril (cyclobenzaprine) 10 mg Route: PO; ll1 18:28 Follow up: Response: No adverse reaction ll1 Disposition Summary: 12/07/21 18:04 Discharge Ordered Location: Home cp Problem: new cp Symptoms: have improved cp Condition: Stable cp Diagnosis - Dorsalgia, unspecified - left flank pain cp Followup: cp - With: Private Physician - When: 1 - 2 days - Reason: Recheck today's complaints Discharge Instructions: - Discharge Summary Sheet cp - Musculoskeletal Pain cp Forms: - Medication Reconciliation Form cp - Thank You Letter cp - Antibiotic Education cp - Prescription Opioid Use cp Prescriptions: - Lidoderm 5 % Topical adhesive patch,medicated - apply 1 patch by TOPICAL route once daily; 1 box; Refills: 0, Product Selection cp Permitted - Baclofen 10 mg Oral Tablet - take 1 tablet by ORAL route 3 times per day; 20 tablet; Refills: 0, Product cp Selection Permitted - Tramadol 50 mg Oral Tablet - take 1 tablet by ORAL route every 8 hours as needed; 12 tablet; Refills: 0, cp Product Selection Permitted Signatures: Dispatcher [employer] EDMS Cedric Hernandez PA PA cp Fabian Daniels MD MD ma2 Brandon Hanna RN RN ll1 Jacqueline Casper RN RN ww Corrections: (The following items were deleted from the chart) 14:55 14:54 Allergies: No Known Allergies; ww ww 16:27 16:14 Desiree ordered. cp ll1
[2021-12-07] MEDS ORDERED: CYCLOBENZAPRINE 10 MG TAB ONE (18:21)
[2021-12-07 18:39] VITALS: TEMP 98.2; O2SAT 95
[2021-12-07 18:42] VITALS: BP 142/79
== END 2021-12-07 18:32 | disposition home or self-care (01) ==
LOC: ER 14:41
DX: R10.9 Unspecified abdominal pain (principal); M54.9 Dorsalgia, unspecified; F17.210 Nicotine dependence, cigarettes, uncomplicated; Z88.5 Allergy status to narcotic agent; Z88.8 Allergy status to other drugs, medicaments and biological substances
CPT/HCPCS: 96361; 85025; 36415; 81025; 81003; 83690; 80053; 76377; 74176; 71045; 96375; 96374; 99284; J1170 ×2; J7050; J2405